=== PATIENT | male | born 1975 | race Caucasian/White ===

== ENCOUNTER 2017-05-29 23:02 | Emergency (ER) | payer BC, OTHER ==
[~2017-05-29] VITALS: Ht 180.3 cm; Wt 99.8 kg
[2017-05-29] MEDS ORDERED: NS IV 1000 ML 1,000 ML IV ONE (23:16)
[2017-05-29] MEDS ORDERED: LORazepam INJ 2 MG/ML (ATIVAN) VIAL ONE (23:20)
[2017-05-29] MEDS ORDERED: LORazepam INJ 2 MG/ML (ATIVAN) VIAL IM ONE (23:45)
[2017-05-29] MEDS: TETANUS,DIPTH,PERTUSS P/F (BOOSTRIX) 0.5 ML VIAL IM ONE (23:59)
[2017-05-30 00:05] VITALS: BP 152/101
[2017-05-30] MEDS ORDERED: SULF1TAB35 PO (00:08)
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
[2017-05-30] MEDS: TETANUS,DIPTH,PERTUSS P/F (BOOSTRIX) 0.5 ML VIAL IM ONE (01:13)
--- OUTSIDE RECORDS SUMMARY | 2017-05-30 02:46 | XMS REPORT ---
Author SKYLER Gutierrez [facility] eClinicalWorks Address Unknown Phone Unavailable Care Team Providers Care Product Merchandiser Name Role Phone SKYLER LICONA CP Unavailable Allergies, Adverse Reactions, Alerts Substance Reaction Event Type N.K.D.A. Info Not Available Non Drug Allergy Problems Problem Type Condition Code Onset Dates Condition Status Assessment History of hypertension Z86.79 Active Problem Pain in thoracic spine 724.1 Active Problem Contusion of unspecified site 924.9 Active Problem Dehydration 276.51 Active Problem Postnasal drip 784.91 Active Assessment Sore throat J02.9 Active Problem Pain in joint, ankle and foot 719.47 Active Problem Acute sinusitis, unspecified 461.9 Active Medications Medication Code System Code Instructions Start Date End Date Status Dosage PredniSONE [facility] [address]-73 40 mg Orally Once a day Jul 31, 2015 Aug 05, 2015 as directed Procedures Procedure Coding System Code Date STREP A ASSAY W/OPTIC CPT-4 58324 Jul 31, 2015 Office Visit, Est Pt., Level 3 CPT-4 42332 Jul 31, 2015 Vital Signs Date/Time: Jul 31, 2015 Temperature 98.6 F Weight 225 lbs Height 72 in BMI 30.51 Index Blood Pressure Diastolic 92 mmHg Blood Pressure Systolic 140 mmHg Cardiac Monitoring Heart Rate 84 bpm Results Name Result Date Reference Range Unit Abnormality Flag STREP A (IN HOUSE) Summary Purpose eClinicalWorks Submission
--- OUTSIDE RECORDS SUMMARY | 2017-05-30 02:46 | XMS REPORT | Continuity of Care Document ---
Demographics Preferred Language Unknown Marital Status Unknown Congregation Affiliation Unknown Race Unknown Ethnic Group Unknown Author Author [facility] Address Unknown Phone Unavailable Allergies Medications Problems Date Dx Coded Attending Type Code Diagnosis Diagnosed By 02/24/2011 401.9 HYPERTENSION, UNSPECIFIED ESSENTIAL 02/24/2011 692.6 POISON ANICETO 02/24/2011 698.9 PRURITUS NOS 03/14/2013 380.10 OTITIS EXTERNA RIGHT 03/14/2013 388.70 OTALGIA Procedures Code [place] [address] CULTURE EAR & STAIN 03/14/2013 Results Encounters ACCT No. Visit Date/Time Discharge Status Pt. Type Provider Facility Loc./Unit Complaint [id number] 03/14/2013 08:12:00 Document Registration [id number] 09/05/2013 14:07:00 2012 23:59:59 CLS Outpatient [id number] 03/12/2013 11:00:00 2012 23:59:59 CLS Outpatient
--- NOTE | 2017-05-30 08:53 | Diagnostic Imaging Report ---
INDICATION: Left hand pain and injury. COMPARISON: 09/05/2013. FINDINGS: Three views of the left hand demonstrate no fracture or dislocation. Articular surfaces are normal. There is no unexpected foreign body. IMPRESSION: No fracture or dislocation. Dictated by: Dictated on workstation # [id number]
== END 2017-05-30 00:05 | disposition home or self-care (01) ==
LOC: EDUNIT# 23:02 → ER 23:05
DX: S61.412A Laceration without foreign body of left hand, initial encounter (principal); F91.8 Other conduct disorders; F10.129 Alcohol abuse with intoxication, unspecified; Z91.14 Patient's other noncompliance with medication regimen; W25.XXXA Contact with sharp glass, initial encounter
CPT/HCPCS: 12002; 73130; 90715; 96372

== ENCOUNTER 2017-06-08 19:16 | Emergency (ER) | payer BC ==
[~2017-06-08] VITALS: Ht 180.3 cm; Wt 99.8 kg
[~2017-06-08 19:16] MED LIST: SULF1TAB35 PO
[2017-06-08 19:38] VITALS: BP 148/90
--- OUTSIDE RECORDS SUMMARY | 2017-06-09 04:25 | XMS REPORT | Continuity of Care Document ---
Demographics Preferred Language Unknown Marital Status Unknown Voodoo Affiliation Unknown Race Unknown Ethnic Group Unknown Author Author [facility] Address Unknown Phone Unavailable Allergies Active Description Code Type Severity Reaction Onset Reported/Identified Relationship to Patient Clinical Status Yes No Known Drug Allergies [id number] Drug Allergy Unknown N/ A 05/29/2017 Medications Problems Date Dx Coded Attending Type Code Diagnosis Diagnosed By 02/24/2011 401.9 HYPERTENSION, UNSPECIFIED ESSENTIAL 02/24/2011 692.6 POISON ANICETO 02/24/2011 698.9 PRURITUS NOS 03/14/2013 380.10 OTITIS EXTERNA RIGHT 03/14/2013 388.70 OTALGIA Procedures Code Description [place] [address] CULTURE EAR & STAIN 03/14/2013 Results Encounters ACCT No. Visit Date/Time Discharge Status Pt. Type Provider Facility Loc./Unit Complaint [id number] 03/14/2013 08:12:00 Document Registration [id number] 05/29/2017 23:05:00 2016 00:05:00 DIS Emergency NIDHI LINDA, KALINA [facility] ER L HAND LACERATION [id number] 09/05/2013 14:07:00 2012 23:59:59 CLS Outpatient [id number] 03/12/2013 11:00:00 2012 23:59:59 CLS Outpatient
[2017-06-09] MEDS ORDERED: SULF1TAB35 PO (18:39)
== END 2017-06-08 19:44 | disposition home or self-care (01) ==
LOC: EDUNIT# 19:16 → ER 19:17
DX: S61.412D Laceration without foreign body of left hand, subsequent encounter (principal); X58.XXXD Exposure to other specified factors, subsequent encounter

== ENCOUNTER 2017-06-09 17:41 | Emergency (ER) | payer BC ==
[~2017-06-09] VITALS: Ht 175.3 cm; Wt 77.1 kg
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
--- NOTE | 2017-06-09 18:21 | Diagnostic Imaging Report ---
INDICATION: Left hand injury. EXAM: AP, oblique and lateral views of the left hand are obtained. COMPARISON is made to a study of 05/29/2017. FINDINGS: No fracture or malalignment is identified. There is no abnormal lytic or sclerotic focus. There is prominent swelling along the dorsum of the hand at the level of the metacarpophalangeal joints. No radiopaque foreign body is identified. IMPRESSION: Dorsal hand swelling without evidence of acute osseous abnormality or radiopaque foreign body. Dictated by: Dictated on workstation # [id number]
[2017-06-09] MEDS ORDERED: SULF1TAB35 PO (18:39)
[2017-06-09 18:49] VITALS: BP 135/87
== END 2017-06-09 18:49 | disposition home or self-care (01) ==
LOC: EDUNIT# 17:41 → ER 17:42
DX: T81.33XA Disruption of traumatic injury wound repair, initial encounter (principal)
CPT/HCPCS: 73130; 99282

== ENCOUNTER → 2018-05-17 | Outpatient (CLI) | payer BC, OTHER ==
[~2018-05-17] MED LIST changes: +IOHEXOL 350 MG/ML 100 ML (OMNIPAQUE 350) VIAL IV ONE; +NS 250 ML (IVPB) BAG IV ONE
--- NOTE | 2018-05-17 11:14 | Diagnostic Imaging Report ---
PROCEDURE: CT abdomen with contrast only. TECHNIQUE: Multiple contiguous axial images were obtained through the abdomen after the administration of intravenous contrast. INDICATION: Abdominal pain, no previous. Lung bases were clear. The liver shows features of at least mild hepatic steatosis. The gallbladder is partially contracted. There is splenomegaly. The spleen measuring 18 cm cephalocaudal with maximal transverse dimensions of 17 cm. No splenic mass or evidence for its rupture. There is trace abdominal free fluid predominantly along the right colic gutter and perisplenic distribution. There is partial visualization of the air-containing appendix normal where seen. The unobstructed kidneys appeared normal. There is no adrenal mass. Pancreatic density and its enhancement was unremarkable. There is enhancement of the intra-and extrahepatic portal veins, however, the directional flow cannot be addressed at CT. No abdominal arterial or venous obstruction found. The liver surface is somewhat undulating and nodular. The cirrhosis in this patient could not be excluded. There is likely a recanalized periumbilical vein most often associated with portal venous hypertension. There is some mild thickening of the marquez of the visualized ascending and proximal transverse colon with some mild pericolonic edema suggestive of nonspecific colitis. Stomach was nondilated. The visualized abdominal small bowel unobstructed and nonacute. IMPRESSION: Fatty liver with questionable findings of cirrhosis. Splenomegaly and small volume ascites with opacified distended portal vein raising the question of cirrhosis and portal hypertension. Thickening of proximal large bowel where visualized consistent with nonspecific colitis. Partial visualization of a normal-appearing appendix. Unobstructed kidneys. No biliary dilatation. Dictated by: Dictated on workstation # [id number]
== END ==
LOC: RAD 08:26
PROVIDERS: ATTEND Internal Medicine
DX: K76.0 Fatty (change of) liver, not elsewhere classified (principal); R16.1 Splenomegaly, not elsewhere classified; R18.8 Other ascites; I87.8 Other specified disorders of veins
CPT/HCPCS: 74160

== ENCOUNTER → 2018-07-07 | Outpatient (CLI) | payer BC ==
[~2018-07-07] MED LIST changes: +FERR-84 PO; -IOHEXOL 350 MG/ML 100 ML (OMNIPAQUE 350) VIAL IV ONE; +LANS30TA3 PO; -NS 250 ML (IVPB) BAG IV ONE; +PANT40TA2 PO; +POTA99TA21 PO
--- NOTE | 2018-07-07 09:36 | Diagnostic Imaging Report ---
PROCEDURE: US Hepatic (Liver). TECHNIQUE: Multiple real-time grayscale images were obtained over the right upper quadrant in various projections. INDICATION: Hepatitis C There are no prior ultrasound examinations available for comparison. The CT abdomen exam of 05/17/2018 noted fatty metamorphosis the liver and raised the question of cirrhosis. There is also splenomegaly and a small volume of ascites. The liver is not enlarged measuring 16.7 cm in length. The liver had somewhat of a lobulated contour and this appearance does raise the question of cirrhosis. There is no focal mass involving the liver and the bili tree is not abnormally dilated. There is no evidence for cholelithiasis. The gallbladder wall has a variable thickness. The thickest portion of the wall measures approximately 8 mm. There also appears to be a trace amount of pericholecystic fluid present. The possibility of acute cholecystitis should be considered. The common bile duct is not dilated. Right kidney is unremarkable. The pancreas was obscured by bowel gas. IMPRESSION: 1. The liver does not appear enlarged and the lobulated contour of the liver does raise the question of cirrhosis. There is no focal mass involving the liver however. 2. The gallbladder wall is irregularly thickened and there is a trace amount of pericholecystic fluid present. There is no sign acute of cholelithiasis but the possibly of acute or chronic cholecystitis should be considered. If further imaging is desired, then a nuclear medicine hepatobiliary scan would be recommended. Dictated by: Dictated on workstation # [id number]
== END ==
LOC: RAD 07:51
PROVIDERS: ATTEND Pediatrics
DX: B18.2 Chronic viral hepatitis C (principal); K82.8 Other specified diseases of gallbladder
CPT/HCPCS: 76705

== ENCOUNTER 2019-08-23 15:39 | Emergency (ER) | payer BC ==
[~2019-08-23] VITALS: Ht 180 cm; Wt 93.8 kg
--- NOTE | 2019-08-23 15:49 | ED Abdominal Pain ---
General Chief Complaint: Abdominal/GI Problems Stated Complaint: ABD PAIN Source of Information: Patient Exam Limitations: No Limitations History of Present Illness Date Seen by Provider: Aug 23, 2019 Time Seen by Provider: 15:48 Initial Comments 2 ER with abdominal pain periumbilical in location sudden onset 1 hour prior to arrival. History of known umbilical hernia, also history of hepatitis C with subsequent treatment and then development of liver cirrhosis. Timing/Duration: 1-3 Hours Severity/Quality: Severe Location: Periumbilical Radiation: No Radiation Activities at Onset: None Associated Symptoms: Denies Symptoms Allergies and Home Medications Allergies Coded Allergies: No Known Drug Allergies (Unverified , 05/29/17) Home Medications Ferrous Sulfate 325 Mg Tablet, 325 MG PO DAILY, (Reported) Pantoprazole Sodium 40 Mg Tablet.dr, 40 MG PO DAILY Prescribed by: YOLI MILLER on 06/07/18 1117 Potassium Gluconate 99 Mg Tablet, 99 MG PO DAILY, (Reported) Patient Home Medication List Home Medication List Reviewed: Yes Review of Systems Review of Systems Constitutional: see HPI EENTM: No Symptoms Reported Respiratory: No Symptoms Reported Cardiovascular: No Symptoms Reported Gastrointestinal: See HPI, Abdominal Pain Genitourinary: No Symptoms Reported Musculoskeletal: no symptoms reported Skin: no symptoms reported Psychiatric/Neurological: No Symptoms Reported Endocrine: No Symptoms Reported Hematologic/Lymphatic: No Symptoms Reported Past Flcivpt-Lqfwjy-Wwpxox Hx Patient Social History Alcohol Beverage of Choice: Beer Type Used: Cigars Recent Foreign Travel: No Contact w/Someone Who Travel: No Recent Hopitalizations: No Immunizations Up To Date Tetanus Booster (TDap): Less than 5yrs Past Medical History Reproductive Disorders: No Colitis Physical Exam Vital Signs Vital Signs - First Documented 08/23/19 15:40 Temp 36.2 Pulse 76 Resp 20 B/P (MAP) 134/90 (105) Pulse Ox 97 Capillary Refill : Height/Weight/BMI Height: 5'9.00" Weight: 190lbs. 0.0oz. 86.557104vp; 28.1 BMI Method:Stated General Appearance: WD/WN, no apparent distress Neck: non-tender, full range of motion Respiratory: normal breath sounds, no respiratory distress, no accessory muscle use Cardiovascular: regular rate, rhythm, no murmur Gastrointestinal: normal bowel sounds, soft, tenderness (incarcerated umbilical hernia, ttp. ) Neurologic/Psychiatric: alert, normal mood/affect, oriented x 3 Skin: normal color, warm/dry Procedures/Interventions Suture Size: 3-0, 4-0 Progress/Results/Core Measures Results/Orders Lab Results Laboratory Tests Test 08/23/19 15:45 08/23/19 16:50 Range/Units White Blood Count 6.1 4.3-11.0 10^3/uL Red Blood Count 5.08 4.35-5.85 10^6/uL Hemoglobin 15.5 13.3-17.7 G/DL Hematocrit 43 40-54 % Mean Corpuscular Volume 85 80-99 FL Mean Corpuscular Hemoglobin 31 25-34 PG Mean Corpuscular Hemoglobin Concent 36 32-36 G/DL Red Cell Distribution Width 14.4 10.0-14.5 % Platelet Count 63 L 130-400 10^3/uL Mean Platelet Volume 11.9 H 7.4-10.4 FL Neutrophils (%) (Auto) 59 42-75 % Lymphocytes (%) (Auto) 25 12-44 % Monocytes (%) (Auto) 13 H 0-12 % Eosinophils (%) (Auto) 3 0-10 % Basophils (%) (Auto) 1 0-10 % Neutrophils # (Auto) 3.6 1.8-7.8 X 10^3 Lymphocytes # (Auto) 1.5 1.0-4.0 X 10^3 Monocytes # (Auto) 0.8 0.0-1.0 X 10^3 Eosinophils # (Auto) 0.2 0.0-0.3 10^3/uL Basophils # (Auto) 0.0 0.0-0.1 10^3/uL Prothrombin Time 15.3 H 12.2-14.7 SEC INR Comment 1.2 0.8-1.4 Sodium Level 140 135-145 MMOL/L Potassium Level 3.9 3.6-5.0 MMOL/L Chloride Level 106 98-107 MMOL/L Carbon Dioxide Level 24 21-32 MMOL/L Anion Gap 10 5-14 MMOL/L Blood Urea Nitrogen 11 7-18 MG/DL Creatinine 0.77 0.60-1.30 MG/DL Estimat Glomerular Filtration Rate > 60 BUN/Creatinine Ratio 14 Glucose Level 136 H 70-105 MG/DL Calcium Level 9.5 8.5-10.1 MG/DL Corrected Calcium 9.3 8.5-10.1 MG/DL Total Bilirubin 1.2 H 0.1-1.0 MG/DL Aspartate Amino Transf (AST/SGOT) 33 5-34 U/L Alanine Aminotransferase (ALT/SGPT) 34 0-55 U/L Alkaline Phosphatase 80 40-136 U/L Total Protein 7.8 6.4-8.2 GM/DL Albumin 4.2 3.2-4.5 GM/DL Lipase 62 8-78 U/L Serum Alcohol < 10 <10 MG/DL Urine Color YELLOW Urine Clarity CLEAR Urine pH 6.5 5-9 Urine Specific Anton 1.025 H 1.016-1.022 Urine Protein NEGATIVE NEGATIVE Urine Glucose (UA) NEGATIVE NEGATIVE Urine Ketones NEGATIVE NEGATIVE Urine Nitrite NEGATIVE NEGATIVE Urine Bilirubin NEGATIVE NEGATIVE Urine Urobilinogen 1.0 < = 1.0 MG/DL Urine Leukocyte Esterase NEGATIVE NEGATIVE Urine RBC (Auto) NEGATIVE NEGATIVE Urine RBC RARE /HPF Urine WBC NONE /HPF Urine Squamous Epithelial Cells RARE /HPF Urine Crystals NONE /LPF Urine Bacteria NEGATIVE /HPF Urine Casts NONE /LPF Urine Mucus SMALL H /LPF Urine Culture Indicated NO My Orders Orders - CLARKE RASHEED APRN Cbc With Automated Diff (08/23/19 15:46) Comprehensive Metabolic Panel (08/23/19 15:46) Lipase (08/23/19 15:46) Ua Culture If Indicated (08/23/19 15:46) Ct Abdomen/Pelvis W (08/23/19 15:46) Fentanyl Injection (Sublimaze Injection (08/23/19 16:00) Alcohol (08/23/19 15:49) Protime With Inr (08/23/19 16:09) Iohexol Injection (Omnipaque 350 Mg/Ml 1 (08/23/19 16:30) Received Contrast (Hold Metformin- Contr (08/23/19 16:30) Ns (Ivpb) (Sodium Chloride 0.9% Ivpb Bag (08/23/19 16:30) Sodium Chloride Flush (Catheter Flush Sy (08/23/19 16:30) Medications Given in ED Current Medications Medications Dose Ordered Sig/Harpreet Route Start Time Stop Time Status Last Admin Dose Admin Fentanyl Citrate 50 mcg ONCE ONCE IVP 08/23/19 16:00 08/23/19 16:01 DC 08/23/19 15:56 50 MCG Iohexol 100 ml ONCE ONCE IV 08/23/19 16:30 08/23/19 16:35 DC 08/23/19 16:42 80 ML Sodium Chloride 10 ml NEEDED PRN IV 08/23/19 16:30 08/23/19 16:42 10 ML Sodium Chloride 100 ml ONCE ONCE IV 08/23/19 16:30 08/23/19 16:35 DC 08/23/19 16:42 80 ML Vital Signs/I&O 08/23/19 15:40 Temp 36.2 Pulse 76 Resp 20 B/P (MAP) 134/90 (105) Pulse Ox 97 Departure Communication (Admissions) Is no right upper quadrant tenderness thus I suspect that the findings on CT possibly related to acute cholecystitis actually relate to the cirrhotic changes of the liver. I discussed with Dr. Quinonez, agrees with plan for outpatient follow- up with primary care and referral to hepatology. From the hernia standpoint since it has been reduced and he is pain free still he can be discharged home. Communication (PCP) ER Impression Primary Impression: Cirrhosis Qualified Codes: K74.60 - Unspecified cirrhosis of liver Additional Impression: Hernia, umbilical Qualified Codes: K42.9 - Umbilical hernia without obstruction or gangrene Disposition: 01 HOME, SELF-CARE Condition: Stable Departure-Patient Inst. Decision time for Depature: 17:27 Referrals: KIRBY KEEN MD (PCP/Family) Primary Care Physician Patient Instructions: Umbilical Hernia, Adult, Cirrhosis (DC) Add. Discharge Instructions: 1. Follow-up with [facility] to discuss referral to [facility] hepatology clinic in regards to your liver cirrhosis.. All discharge instructions reviewed with patient and/or family. Voiced understanding. CLARKE RASHEED HE[facility] UNIT COORDINATOR Aug 23, 2019 15:49 POS
[2019-08-23 15:58] LABS: BASOPHILS % (AUTO) 1 % (0-10); EOSINOPHILS # (AUTO) 0.2 10^3/uL (0.0-0.3); EOSINOPHILS % (AUTO) 3 % (0-10); HEMATOCRIT 43 % (40-54); HEMOGLOBIN 15.5 G/DL (13.3-17.7); LYMPHOCYTES # (AUTO) 1.5 X 10^3 (1.0-4.0); LYMPHOCYTES % (AUTO) 25 % (12-44); MEAN CORPUSCULAR HEMOGLOBIN 31 PG (25-34); MEAN CORPUSCULAR HGB CONC 36 G/DL (32-36); MEAN CORPUSCULAR VOLUME 85 FL (80-99); MEAN PLATELET VOLUME 11.9 FL (7.4-10.4); MONOCYTES # (AUTO) 0.8 X 10^3 (0.0-1.0); MONOCYTES % (AUTO) 13 % (0-12); NEUTROPHILS # (AUTO) 3.6 X 10^3 (1.8-7.8); NEUTROPHILS % (AUTO) 59 % (42-75); PLATELET COUNT 63 10^3/uL (130-400); RED CELL DISTRIBUTION WIDTH 14.4 % (10.0-14.5); WHITE BLOOD COUNT 6.1 10^3/uL (4.3-11.0)
[2019-08-23] MEDS ORDERED: fentaNYL INJECTION 100 MCG/2 ML AMP IVP ONE (16:00)
[2019-08-23 16:18] LABS: ALANINE AMINOTRANSFERASE 34 U/L (0-55); ALBUMIN 4.2 GM/DL (3.2-4.5); ALKALINE PHOSPHATASE 80 U/L (40-136); BILIRUBIN,TOTAL 1.2 MG/DL (0.1-1.0); BUN/CREATININE RATIO 14; CALCIUM 9.5 MG/DL (8.5-10.1); CARBON DIOXIDE 24 MMOL/L (21-32); CHLORIDE 106 MMOL/L (98-107); CREATININE SERUM 0.77 MG/DL (0.60-1.30); GFR ESTIMATED > 60; GLUCOSE 136 MG/DL (70-105); LIPASE 62 U/L (8-78); POTASSIUM 3.9 MMOL/L (3.6-5.0); SODIUM 140 MMOL/L (135-145); TOTAL PROTEIN 7.8 GM/DL (6.4-8.2)
[2019-08-23 16:23] LABS: INR 1.2 (0.8-1.4); PROTHROMBIN TIME PATIENT 15.3 SEC (12.2-14.7)
[2019-08-23] MEDS ORDERED: IOHEXOL 350 MG/ML 100 ML (OMNIPAQUE 350) VIAL IV ONE (16:30)
[2019-08-23] MEDS ORDERED: CATHETER FLUSH 10 ML SYR IV PRN (16:30)
[2019-08-23] MEDS ORDERED: HOLD METFORMIN - RECEIVED CONTRAST 20 ML VIAL IV SCH (16:30)
[2019-08-23] MEDS ORDERED: NS 100 ML (IVPB) BAG IV ONE (16:30)
--- NOTE | 2019-08-23 16:53 | NUR ---
Pt resting comfortably in bed. Pt reports pain has resolved at this time.
--- NOTE | 2019-08-23 17:02 | Diagnostic Imaging Report ---
PROCEDURE: CT abdomen and pelvis with contrast. TECHNIQUE: Multiple contiguous axial images were obtained through the abdomen and pelvis after administration of intravenous contrast. Auto Exposure Controls were utilized during the CT exam to meet ALARA standards for radiation dose reduction. INDICATION: Abdominal pain. COMPARISON: May 17, 2018. FINDINGS: The visualized lung bases are clear. Mural thickening of the visualized distal esophagus. The liver appears diffusely hypodense. Additionally, the liver demonstrates a nodular contour. No focal hepatic mass lesion. Splenomegaly, slightly increased in size since the prior examination measuring up to 19.5 cm in cranial to caudal dimension without focal splenic mass lesion. 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 The gallbladder is decompressed. Mild pericholecystic fluid is seen about the gallbladder with questionable gallbladder wall thickening, appearing slightly improved from the prior examination. The adrenal glands are unremarkable. The pancreas is unremarkable. Hyperdensities within the central aspect of the bilateral kidneys felt to relate to early excretion of contrast as opposed to nonobstructing renal calculi. The bilateral kidneys are otherwise unremarkable. No aneurysmal dilatation of the abdominal aorta. Mild scattered vascular calcifications. The appendix is unremarkable. The urinary bladder is predominantly decompressed, therefore not well evaluated. Mural thickening is noted involving multiple loops of small bowel within the left abdomen. No bowel obstruction or pneumatosis. No significant adenopathy, free air, or free fluid within the abdomen or pelvis. No acute osseous abnormality with mild scattered osseous degenerative changes. IMPRESSION: Cirrhotic morphology of the liver with associated splenomegaly and additional findings suggestive of portal venous hypertension. Splenomegaly has increased since the prior examination. Questionable gallbladder wall thickening and pericholecystic fluid, actually appearing slightly improved from the prior examination. Although this could relate to acute cholecystitis, it is favored this relates to underlying cirrhosis and hepatic dysfunction. Recommend clinical correlation for acute cholecystitis. If there is clinical concern for acute cholecystitis, then a right upper quadrant ultrasound versus nuclear medicine hepatobiliary imaging scan would be recommended. Mural thickening of multiple loops of small bowel, felt to relate to bowel edema versus enteritis. No evidence of bowel obstruction. Additional findings as above. Dictated by: Dictated on workstation # [id number]
[2019-08-23 17:05] LABS: BILIRUBIN,URINE NEGATIVE (NEGATIVE); CLARITY,URINE CLEAR; COLOR,URINE YELLOW; GLUCOSE, URINE (UA) NEGATIVE (NEGATIVE); KETONES,URINE NEGATIVE (NEGATIVE); LEUKOCYTE ESTERASE ,URINE NEGATIVE (NEGATIVE); NITRITE,URINE NEGATIVE (NEGATIVE); PH,URINE 6.5 (5-9); PROTEIN,URINE NEGATIVE (NEGATIVE)
[2019-08-23 17:15] LABS: BACTERIA,URINE NEGATIVE /HPF; RBC,URINE RARE /HPF; SQUAMOUS EPITHELIAL CELL,UR RARE /HPF
[2019-08-23 17:55] VITALS: BP 143/131
== END 2019-08-23 17:55 | disposition home or self-care (01) ==
LOC: EDUNIT# 15:39 → ER 15:40
DX: K74.60 Unspecified cirrhosis of liver (principal); K42.9 Umbilical hernia without obstruction or gangrene; B19.20 Unspecified viral hepatitis C without hepatic coma; Z87.19 Personal history of other diseases of the digestive system
CPT/HCPCS: 36415; 74177; 80053; 80320; 81000; 83690; 85025; 85610

== ENCOUNTER 2019-09-13 10:17 | Emergency (ER) | payer BC, OTHER ==
[~2019-09-13] VITALS: Ht 180 cm; Wt 95.0 kg
--- NOTE | 2019-09-13 10:47 | ED Abdominal Pain ---
General Chief Complaint: Abdominal/GI Problems Stated Complaint: ABD PAIN Nursing Triage Note: PT AMBULATED TO ROOM 5 PT CO OF ABD PAIN STARTED AT 0830 THIS AM, PT HAS UMBILICAL HERNIA AND STARTED HAVING ACUTE PAIN. RATES PAIN 06/20 Sepsis Screen: No Definite Risk Source of Information: Patient Exam Limitations: No Limitations History of Present Illness Date Seen by Provider: Sep 13, 2019 Time Seen by Provider: 10:32 Initial Comments Here with complaint of umbilical hernia that is hurting. This is been going on since this morning. He has had it incarcerated before but was reduced manually. He tried laying on the floor to get it to manually reduce and it would not so he came in. Timing/Duration: 1-3 Hours Severity/Quality: Moderate Location: Periumbilical Modifying Factors: Worsens With Movement, Worsens With Palpation Associated Symptoms: No Nausea/Vomiting, No Swelling/Mass in Abdomen Allergies and Home Medications Allergies Coded Allergies: No Known Drug Allergies (Unverified , 05/29/17) Home Medications Pantoprazole Sodium 40 Mg Tablet.dr, 40 MG PO DAILY Prescribed by: YOLI MILLER on 06/07/18 1117 Patient Home Medication List Home Medication List Reviewed: Yes Review of Systems Review of Systems Constitutional: see HPI Respiratory: No Symptoms Reported Cardiovascular: No Symptoms Reported Gastrointestinal: See HPI, Abdominal Pain; Denies Nausea, Denies Vomiting Past Lqskjrx-Nhkinc-Qkxacb Hx Past Med/Social Hx: Reviewed Nursing Past Med/Soc Hx Patient Social History Alcohol Use: Past History Alcohol Beverage of Choice: Beer Recreational Drug Use: No Drug of Choice: marijuana Smoking Status: Current Everyday Smoker Type Used: Cigarettes Recent Foreign Travel: No Contact w/Someone Who Travel: No Recent Infectious Disease Expo: No Recent Hopitalizations: No Immunizations Up To Date Tetanus Booster (TDap): Less than 5yrs Past Medical History Surgeries: Yes (leg fx, ) Respiratory: No Cardiac: No Neurological: No Reproductive Disorders: No Genitourinary: No Gastrointestinal: Yes Colitis Musculoskeletal: No Endocrine: No HEENT: No Cancer: No Psychosocial: No Integumentary: No Blood Disorders: No Family Medical History Reviewed Nursing Family Hx Physical Exam Vital Signs Vital Signs - First Documented 09/13/19 10:19 Temp 37.1 Pulse 66 Resp 18 B/P (MAP) 166/107 (126) Pulse Ox 98 Capillary Refill : Less Than 3 Seconds Height/Weight/BMI Height: 5'9.00" Weight: 190lbs. 0.0oz. 86.899099zr; 29.00 BMI Method:Stated General Appearance: WD/WN, no apparent distress Respiratory: lungs clear, normal breath sounds Cardiovascular: regular rate, rhythm, no murmur Gastrointestinal: soft, other (periumbilical hernia noted. This was able to be reduced with gentle pressure and placing knees in flexed position. Pain resolved after reduction.) Neurologic/Psychiatric: alert, oriented x 3 Procedures/Interventions Suture Size: 3-0, 4-0 Progress/Results/Core Measures Results/Orders Vital Signs/I&O 09/13/19 10:19 Temp 37.1 Pulse 66 Resp 18 B/P (MAP) 166/107 (126) Pulse Ox 98 Blood Pressure Mean: 126 POS Progress Progress Note : Progress Note Seen and evaluated. Hernia reduced manually. Better afterwards. Discharged home with return precautions. Patient verbalize understanding instructions and agreement with plan. Departure Impression Primary Impression: Periumbilical hernia Disposition: HOME, SELF-CARE Condition: Improved Departure-Patient Inst. Decision time for Depature: 10:45 Referrals: KIRBY KEEN MD (PCP/Family) Primary Care Physician Patient Instructions: Umbilical Hernia, Adult Add. Discharge Instructions: All discharge instructions reviewed with patient and/or family. Voiced understanding. Use technique shown for reduction of the hernia if it happens again. You should lay flat and then flexure knees and relax her abdominal muscles and use gentle pressure to reduce the hernia. 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 Return for other concerns as needed. Follow-up with your doctor at for referral to surgeon for repair. MAGUI KOROMA MD Sep 13, 2019 10:46 POS
[2019-09-13 10:54] VITALS: BP 153/113
== END 2019-09-13 10:54 | disposition home or self-care (01) ==
LOC: EDUNIT# 10:17 → ER 10:19
DX: K42.9 Umbilical hernia without obstruction or gangrene (principal); F17.210 Nicotine dependence, cigarettes, uncomplicated
CPT/HCPCS: 99282

== ENCOUNTER 2019-11-07 12:38 | Emergency (ER) | payer BC, OTHER ==
[~2019-11-07] VITALS: Ht 180.3 cm; Wt 97.3 kg
--- NOTE | 2019-11-07 13:06 | ED Abdominal Pain ---
General Chief Complaint: Abdominal/GI Problems Stated Complaint: ABDOMINAL PAIN Nursing Triage Note: AMB TO TRIAGE C/O ABD PAIN ONSET TODAY Sepsis Screen: No Definite Risk Source of Information: Patient Exam Limitations: No Limitations History of Present Illness Date Seen by Provider: Nov 07, 2019 Time Seen by Provider: 12:52 Initial Comments Here with umbilical hernia that he cannot reduce. Apparently he was crawling over and under things at work and then felt sick, out. He is unable to get it reduced and was worried about how much pressure he can put on it. He tried at home but it was unsuccessful so presented here. Onset at 11 AM. Denies nausea, vomiting or bowel problems. Does have history of hepatitis C and currently is under evaluation for that. Timing/Duration: 1-3 Hours Severity/Quality: Moderate Location: Periumbilical Radiation: No Radiation Activities at Onset: Activity Modifying Factors: Improves With Resting Associated Symptoms: No Nausea/Vomiting Allergies and Home Medications Allergies Coded Allergies: No Known Drug Allergies (Unverified , 05/29/17) Home Medications Pantoprazole Sodium 40 Mg Tablet.dr, 40 MG PO DAILY Prescribed by: YOLI MILLER on 06/07/18 1117 Patient Home Medication List Home Medication List Reviewed: Yes Review of Systems Review of Systems Constitutional: see HPI; No chills, No fever Respiratory: No Symptoms Reported Cardiovascular: No Symptoms Reported Gastrointestinal: See HPI, Abdominal Pain, Nausea, Vomiting Past Yrcldqk-Jxejxj-Vwjiqr Hx Past Med/Social Hx: Reviewed Nursing Past Med/Soc Hx Patient Social History Alcohol Use: Denies Use Number of Drinks Today: AA Alcohol Beverage of Choice: Beer Recreational Drug Use: No Drug of Choice: marijuana Smoking Status: Never a Smoker Type Used: Cigarettes Recent Foreign Travel: No Contact w/Someone Who Travel: No Recent Infectious Disease Expo: No Recent Hopitalizations: No Immunizations Up To Date Tetanus Booster (TDap): Less than 5yrs Past Medical History Surgeries: Yes (leg fx, ) Respiratory: No Cardiac: No Hypertension Neurological: No Reproductive Disorders: No Genitourinary: No Gastrointestinal: Yes (HEP C) Colitis Musculoskeletal: No Endocrine: No HEENT: No Cancer: No Psychosocial: No Integumentary: No Blood Disorders: No Family Medical History Reviewed Nursing Family Hx Physical Exam Vital Signs Vital Signs - First Documented 11/07/19 12:44 Pulse 71 Resp 18 B/P (MAP) 144/93 (110) Pulse Ox 98 Capillary Refill : Less Than 3 Seconds Height/Weight/BMI Height: 5'9.00" Weight: 190lbs. 0.0oz. 86.744949lm; 29.00 BMI Method:Stated General Appearance: WD/WN, mild distress Respiratory: lungs clear, normal breath sounds Cardiovascular: regular rate, rhythm, no murmur Gastrointestinal: soft, tenderness (periumbilical region), hernia (periumbilical hernia noted that is quite prominent and tender. Genital and persistent pressure and positioning as well as some manipulation allowed for reduction of the hernia with complete relief of pain.) Procedures/Interventions Suture Size: 3-0, 4-0 Progress/Results/Core Measures Results/Orders Vital Signs/I&O 11/07/19 12:44 Pulse 71 Resp 18 B/P (MAP) 144/93 (110) Pulse Ox 98 Blood Pressure Mean: 110 Progress Progress Note : Progress Note Seen and evaluated. Hernia reduced this described above. I did discuss with patient about home therapy for this as well as the need for further surgical follow-up. Discharged home with return precautions. Patient verbalize understanding instructions and agreement with plan. Departure Impression Primary Impression: Umbilical hernia without obstruction and without gangrene Disposition: 01 HOME, SELF-CARE Condition: Improved Departure-Patient Inst. Decision time for Depature: 13:05 Referrals: KIRBY KEEN MD (PCP/Family) Primary Care Physician Patient Instructions: Acute Abdomen (Belly Pain), Adult (DC), Umbilical Hernia, Adult Add. Discharge Instructions: All discharge instructions reviewed with patient and/or family. Voiced understanding. Follow-up with her doctor for recheck and further evaluation as needed. Use still should consider surgical consult to evaluate if this. Return for worse pain, hernia that he cannot reduce, difficulties with going to the bathroom, persistent vomiting or other concerns as needed. MAGUI KOROMA MD Nov 07, 2019 13:06
[2019-11-07 13:08] VITALS: BP 144/93
== END 2019-11-07 13:09 | disposition home or self-care (01) ==
LOC: EDUNIT# 12:38 → ER 12:39
DX: K42.9 Umbilical hernia without obstruction or gangrene (principal); I10 Essential (primary) hypertension; B19.20 Unspecified viral hepatitis C without hepatic coma; Z87.19 Personal history of other diseases of the digestive system
CPT/HCPCS: 99282

== ENCOUNTER 2020-01-09 05:35 | Outpatient (CLI) | payer BC ==
[~2020-01-09] VITALS: Ht 177 cm; Wt 93.0 kg
[2020-01-09] MEDS ORDERED: VITA-203 PO (13:29)
[2020-01-09] MEDS ORDERED: LISI10TA2 PO (13:29)
== END 2020-01-09 13:39 | disposition home or self-care (01) ==
LOC: PREOP 05:35
PROVIDERS: ATTEND Surgery
DX: Z01.818 Encounter for other preprocedural examination (principal)

== ENCOUNTER → 2021-06-05 | Outpatient (CLI) | payer BC ==
[~2021-06-05] MED LIST changes: +CATHETER FLUSH 10 ML SYR IV PRN; +HOLD METFORMIN - RECEIVED CONTRAST 20 ML VIAL IV SCH; +IOHEXOL 350 MG/ML 100 ML (OMNIPAQUE 350) VIAL IV ONE; +LISI10TA25 PO; +NS 100 ML (IVPB) BAG IV ONE; -SULF1TAB35 PO; +SULF1TAB38 PO; +VITA-203 PO
--- NOTE | 2021-06-05 10:12 | Diagnostic Imaging Report ---
PROCEDURE: CT abdomen with and without contrast. TECHNIQUE: Multiple contiguous axial CT images of the abdomen were obtained prior to and after intravenous administration of iodinated contrast. Auto Exposure Controls were utilized during the CT exam to meet ALARA standards for radiation dose reduction. INDICATION: Per the history, an outside abdominal ultrasound showed abnormality associated with the liver. CT is performed as further evaluation including precontrast hepatic arterial phase, portal venous phase, hepatovenous phase, and delayed acquisitions. COMPARISON: Routine post contrast enhanced dynamic abdominal CT of 10/23/2018. FINDINGS: Hepatic density and morphology are consistent with cirrhosis, likely progressed in severity from the comparison exam. There is, however, no identifiable liver mass. Sequelae of portal venous hypertension again noted with unchanged mild splenomegaly, jose e-splenic varicosities, paraesophageal varicosities, and a recanalized periumbilical vein. There is no abdominal ascites. The gallbladder and bile ducts are unremarkable. The adrenals are unremarkable. The unobstructed kidneys are normal. The pancreas and its duct are unremarkable. There is no bile duct dilatation. The intra and extrahepatic portal veins as well as the splenic and SMV are all patent; however, directional flow cannot be addressed at CT. The aorta shows mild scattered calcified plaque without stenosis. There is a fatty periumbilical hernia. No herniation of viscus. The hernial orifice has a diameter of 1.3 cm. The bony structures are nonacute. There is no basilar pleural fluid. The lung bases are clear. No acute or suspect bony lesion. IMPRESSION: 1. Likely progressive changes of hepatic cirrhosis but no evidence for liver mass. 2. Sequelae of portal venous hypertension not obviously changed with stable splenomegaly, venous varicosities, and vascular collateral channels without ascites. 3. Increased fatty umbilical hernia. No herniation of viscus. Dictated by: Dictated on workstation # [id number]
== END ==
LOC: RAD 08:15
PROVIDERS: ATTEND Pediatrics
DX: K42.9 Umbilical hernia without obstruction or gangrene (principal); K76.6 Portal hypertension; I83.90 Asymptomatic varicose veins of unspecified lower extremity; R16.1 Splenomegaly, not elsewhere classified
CPT/HCPCS: 74170